=== PATIENT | female | born 1985 | race Caucasian/White ===

== ENCOUNTER 2020-11-14 13:30 | Inpatient (IN) | payer OTHER ==
[~2020-11-14] VITALS: Ht 165.1 cm; Wt 108.9 kg
[2020-11-14 15:05] LABS: HEMOGLOBIN 13.1 gm/dl (12.3-15.3); RED BLOOD COUNT 4.36 M/UL (4.00-5.10); WHITE BLOOD COUNT 14.3 K/UL (4.5-11.0)
[2020-11-14] MEDS ORDERED: GUMMI BEAR MUL1 EACH PO (15:08)
[2020-11-14] MEDS ORDERED: DOCUSATE SODIU100 MG PO (16:56)
[2020-11-14] MEDS ORDERED: IBUPROFEN600 MG PO (16:56)
[2020-11-15 05:58] LABS: HEMOGLOBIN 11.9 gm/dl (12.3-15.3)
== END 2020-11-15 19:40 | disposition home or self-care (01) | DRG 807 ==
LOC: GENOP 13:30 → OB 14:06
PROVIDERS: ADMIT Obstetrics & Gynecology
PROC: 10E0XZZ Delivery of Products of Conception, External Approach (ICD-10-PCS; principal; 2020-11-14)
PROC: 4A1HXCZ Monitoring of Products of Conception, Cardiac Rate, External Approach (ICD-10-PCS; 2020-11-14)
DX: O62.9 Abnormality of forces of labor, unspecified (principal); Z37.0 Single live birth; Z3A.39 39 weeks gestation of pregnancy; Z88.0 Allergy status to penicillin; Z88.8 Allergy status to other drugs, medicaments and biological substances; Z90.49 Acquired absence of other specified parts of digestive tract; Z20.822 Contact with and (suspected) exposure to COVID-19
CPT/HCPCS: 36415; 81001; 82800; 85014; 85018; 85025; J2590; J2795; J3010; J7120; U0002